=== PATIENT | female | born 1990 | race Caucasian/White ===

== ENCOUNTER → 2018-06-30 | Outpatient (CLI) | payer MEDICAID ==
--- NOTE | 2018-07-01 07:05 | US ---
EXAMINATION TYPE: US pelvis complete transvag DATE OF EXAM: 06/30/2018 COMPARISON: NONE CLINICAL HISTORY: N94.6 Dysmenorrhea. TECHNIQUE: . Transabdominal sonographic images of the pelvis were acquired. Transvaginal sonographi c images were medically necessary to better assess the following anatomy: ovaries EXAM MEASUREMENTS: Uterus: 8x 4.1 x 6.1 cm Endometrial Stripe: 0.9 cm Right Ovary: 5.2 x 2.9 x 4.0 cm Left Ovary: 2.5 x 1.5 x 2.5 cm 1. Uterus: Anteverted 2. Endometrium: wnl for secretory phase 3. Right Ovary: 3.2 x 2.6 x 4.0 cm complex cyst with debris (? hemorrhagic) and a small amount of fl uid adjacent to uterus 4. Left Ovary: wnl 5. Bilateral Adnexa: wnl 6. Posterior cul-de-sac: no free fluid IMPRESSION: 1. Complex right ovarian cysts which may reflect a hemorrhagic cyst. This can be confirmed with follo w-up study in 6 weeks. Neoplasm not excluded.
== END | disposition home or self-care (01) ==
LOC: RADUSWWP 15:34 → MERGE 15:40
PROVIDERS: ATTEND Obstetrics & Gynecology
DX: N83.201 Unspecified ovarian cyst, right side (principal)
CPT/HCPCS: 76830; 76856

== ENCOUNTER → 2018-08-11 | Outpatient (CLI) | payer MEDICAID ==
--- NOTE | 2018-08-11 16:06 | US ---
EXAMINATION TYPE: US transvaginal DATE OF EXAM: 08/11/2018 COMPARISON: US CLINICAL HISTORY: N83.0 Previous ovarian cyst. TECHNIQUE: Transvaginal (TV). Date of LMP: 07/30/2018 EXAM MEASUREMENTS: Uterus: 7.5 x 4.3 x 4.4 cm Endometrial Stripe: 1.1 cm Right Ovary: 5.0 x 5.6 x 3.6 cm Left Ovary: 2.7 x 2.5 x 2.5 cm 1. Uterus: Anteverted wnl 2. Endometrium: wnl 3. Right Ovary: 4.6 x 3.5 x 4.9 cm septated cyst with low level internal echoes. 4. Left Ovary: follicle measures 1.7 x 1.6 x 1.7 cm 5. Bilateral Adnexa: wnl 6. Posterior cul-de-sac: no free fluid IMPRESSION: Complicated right ovarian cyst is increased in size in the interval, findings may represe nt hemorrhagic cyst, follow-up recommended.
== END | disposition home or self-care (01) ==
LOC: RADUSWWP 15:24
PROVIDERS: ATTEND Obstetrics & Gynecology
DX: N83.291 Other ovarian cyst, right side (principal)
CPT/HCPCS: 76830

== ENCOUNTER → 2018-09-06 | Outpatient (CLI) | payer MEDICAID ==
--- NOTE | 2018-09-06 16:50 | US ---
EXAMINATION TYPE: US transvaginal DATE OF EXAM: 09/06/2018 COMPARISON: US 1 month prior CLINICAL HISTORY: N83.0 OVARIAN CYST. TECHNIQUE: Transvaginal (TV). Date of LMP: 08/27/18 EXAM MEASUREMENTS: Uterus: 7.5 x 4.0 x 4.5cm Endometrial Stripe: 0.5cm Right Ovary: 4.9 x 3.7 x 3.9 cm Left Ovary: 2.3 x 1.7 x 1.8 cm 1. Uterus: wnl, anteverted 2. Endometrium: wnl 3. Right Ovary: septated complex cyst with internal echoes measuring 4.3 x 3.1 x 3.5 4. Left Ovary: wnl 5. Bilateral Adnexa: wnl 6. Posterior cul-de-sac: wnl IMPRESSION: 1. Complex septated echo filled cyst within the right ovary. Follow-up is recommended. 2. Exam is compared to 08/11/2018, cyst size is slightly smaller than comparison.
== END | disposition home or self-care (01) ==
LOC: RADUSWWP 08:09
PROVIDERS: ATTEND Obstetrics & Gynecology
DX: N83.201 Unspecified ovarian cyst, right side (principal)
CPT/HCPCS: 76830

== ENCOUNTER → 2018-11-30 | Outpatient (CLI) | payer MEDICAID | END | disposition home or self-care (01) | LOC: LABWHC1 09:54 | PROVIDERS: ATTEND Obstetrics & Gynecology | DX: Z34.00 Encounter for supervision of normal first pregnancy, unspecified trimester (principal); Z3A.00 Weeks of gestation of pregnancy not specified | CPT/HCPCS: 36415; 84702; 86850; 86900; 86901 ==

== ENCOUNTER → 2018-12-02 | Outpatient (CLI) | payer MEDICAID | END | disposition home or self-care (01) | LOC: LABWHC1 09:04 | PROVIDERS: ATTEND Obstetrics & Gynecology | DX: O26.811 Pregnancy related exhaustion and fatigue, first trimester (principal); Z3A.00 Weeks of gestation of pregnancy not specified | CPT/HCPCS: 36415; 84702 ==

== ENCOUNTER → 2019-01-17 | Outpatient (CLI) | payer MEDICAID | END | disposition home or self-care (01) | LOC: LABWHC1 10:49 | PROVIDERS: ATTEND Obstetrics & Gynecology | DX: O26.819 Pregnancy related exhaustion and fatigue, unspecified trimester (principal); Z3A.00 Weeks of gestation of pregnancy not specified | CPT/HCPCS: 36415; 84702 ==

== ENCOUNTER → 2019-02-13 | Outpatient (CLI) | payer MEDICAID ==
--- NOTE | 2019-02-13 13:03 | US ---
EXAMINATION TYPE: Transabdominal DATE OF EXAM: 02/13/2019 12:48 PM COMPARISON: NONE CLINICAL HISTORY: Z36 Confirm Dates. EXAM PERFORMED: Transabdominal (TA) EXAM MEASUREMENTS: GESTATIONAL AGE / DATING Physician Established: (10 weeks/5 days) EDC: 09/06/19 Dates by LMP: (10 weeks/5 days) EDC: 09/06/19 Dates by First Scan: No previous this is first scan Dates by Current Scan for: (10 weeks/6 days) EDC: 09/05/19 MATERNAL ANATOMY Uterus: 12.2 x 7.4 x 7.6cm Right Ovary: 3.4 x 1.6 x 2.0cm Left Ovary: 2.7 x 2.1 x 2.5cm Post CDS / Adnexa: wnl Presence of free fluid: no GESTATION / SURVEY CRL: 4.0 (10 weeks/6 days) Yolk Sac (normal less than 6mm): 4mm Heart Rate: 174 bpm Rhythm: Normal IUP: Viable IUP Date of LMP: 11/30/18 Beta HcG (if available): Not available at this time IMPRESSION: Single viable intrauterine is noted.
[2019-02-13 13:35] LABS: HCT 36.4 % (34.0-46.0); HGB 11.8 gm/dL (11.4-16.0); MCH 27.3 pg (25.0-35.0); MCHC 32.5 g/dL (31.0-37.0); MCV 83.8 fL (80.0-100.0); Mean Platelet Volume 7.8; Platelet Count 236 k/uL (150-450); RBC 4.34 m/uL (3.80-5.40); RDW 15.2 % (11.5-15.5); WBC 12.6 k/uL (3.8-10.6)
[2019-02-13 13:38] LABS: Glucose 84 mg/dL (74-99)
[2019-02-14 06:16] LABS: Toxoplasma Antibody (IgG) <3.0 IU/mL (<7.2); Toxoplasma Antibody (IgM) <3.0 AU/mL (<8.0)
== END | disposition home or self-care (01) ==
LOC: RADUSWWP 12:29
PROVIDERS: ATTEND Obstetrics & Gynecology
DX: Z36.89 Encounter for other specified antenatal screening (principal)
CPT/HCPCS: 76801; 82565; 82947; 85027; 86762; 86777; 86778; 86780; 86850; 86900; 86901; 87340

== ENCOUNTER → 2019-02-13 | Outpatient (CLI) | payer MEDICAID | END | disposition home or self-care (01) | LOC: LABWHC1 12:50 | PROVIDERS: ATTEND Obstetrics & Gynecology | DX: Z53.9 Procedure and treatment not carried out, unspecified reason (principal) ==

== ENCOUNTER → 2019-05-15 | Outpatient (CLI) | payer MEDICAID ==
--- NOTE | 2019-05-15 09:12 | US ---
EXAMINATION TYPE: US OB >= 14 wk fetus DATE OF EXAM: 05/15/2019 COMPARISON: 04/12/2019 CLINICAL HISTORY: Z36 FOLLOW UP TECHNIQUE: Transabdominal (TA) GESTATIONAL AGE / DATING Physician Established: (23 weeks/5 days) EDC: 09/06/19 Dates by LMP: (23 weeks/ 5 days) EDC: 09/06/19 Dates by First Scan: (23 weeks/5 days) EDC: 09/06/19 Dates by Current Scan: (23 weeks/5 days) EDC: 09/06/19 SURVEY IUP: Single PLACENTA: Anterior PREVIA: No Previa NIC: 15.5 cm CERVICAL LENGTH (transabdominal: norm > 3.0cm): 3.2 cm BIOMETRY PRESENTATION: Vertex BPD: 5.9 cm 24 weeks / 0 days HC: 21.9 cm 23 weeks / 6 days AC: 19.3 cm 24 weeks / 0 days FL: 4.3 cm 24 weeks / 0 days ESTIMATED WEIGHT IN GRAMS: 350 grams ESTIMATED WEIGHT IN LBS/OZ: 1 lbs. 7 oz. WEIGHT PERCENTAGE BASED ON ESTABLISHED DATES: 55% HC/AC: 1.1 FL/AC: 22.3 HEART RATE: 135 bpm RHYTHM: Normal The previously seen choroid plexus cysts do not persist on today's imaging. IMPRESSION: The previously seen choroid plexus cysts have resolved. Single live intrauterine with a son ographic age of 23 weeks and 5 days and estimated date of delivery of 09/06/2019, concordant with men strual age.
== END ==
LOC: RADUSWWP 08:12
PROVIDERS: ATTEND Obstetrics & Gynecology
DX: Z36.89 Encounter for other specified antenatal screening (principal); Z3A.23 23 weeks gestation of pregnancy; Z88.0 Allergy status to penicillin
CPT/HCPCS: 76805

== ENCOUNTER → 2019-05-22 | Outpatient (CLI) | payer MEDICAID ==
[2019-05-22 10:00] LABS: HCT 32.4 % (34.0-46.0); HGB 10.4 gm/dL (11.4-16.0); MCHC 32.2 g/dL (31.0-37.0); MCV 90.2 fL (80.0-100.0); Mean Platelet Volume 8.3; Platelet Count 195 k/uL (150-450); RBC 3.59 m/uL (3.80-5.40); RDW 15.3 % (11.5-15.5); WBC 12.3 k/uL (3.8-10.6)
== END | disposition home or self-care (01) ==
LOC: LABWHC1 08:17
PROVIDERS: ATTEND Obstetrics & Gynecology
DX: Z34.82 Encounter for supervision of other normal pregnancy, second trimester (principal)
CPT/HCPCS: 36415; 82950; 85027

== ENCOUNTER → 2019-05-24 | Outpatient (CLI) | payer MEDICAID ==
[2019-05-24 12:21] LABS: Glucose 3 Hour, Gest 110 mg/dL
== END | disposition home or self-care (01) ==
LOC: LABWHC1 07:21
PROVIDERS: ATTEND Obstetrics & Gynecology
DX: O99.810 Abnormal glucose complicating pregnancy (principal)
CPT/HCPCS: 36415; 82951; 82952

== ENCOUNTER → 2019-08-03 | Outpatient (CLI) | payer MEDICAID ==
--- NOTE | 2019-08-03 10:01 | US ---
EXAMINATION TYPE: US OB >= 14 wk fetus DATE OF EXAM: 08/03/2019 COMPARISON: Multiple U/S. Latest 05/15/19 CLINICAL HISTORY: O36.63X0 large for dates TECHNIQUE: Transabdominal (TA) GESTATIONAL AGE / DATING Physician Established: (35 weeks/1 days) EDC: 09/06/19 Dates by LMP: (35 weeks/1 days) EDC: 09/06/19 Dates by First Scan: (35 weeks/2 days) EDC: 09/05/19 Dates by Current Scan: (35 weeks/2 days) EDC: 09/05/19 SURVEY IUP: Single PLACENTA: Anterior PREVIA: No Previa NIC: 12.7 cm Normal CERVICAL LENGTH (transabdominal: norm > 3.0cm): 3.6 cm BIOMETRY PRESENTATION: Vertex LIE: Longitudinal BPD: 8.8 cm 35 weeks / 3 days HC: 30.3 cm 33 weeks / 5 days AC: 32.1 cm 36 weeks / 0 days FL: 7.2 cm 36 weeks / 6 days ESTIMATED WEIGHT IN GRAMS: 2802 grams ESTIMATED WEIGHT IN LBS/OZ: 6 lbs. 3 oz. WEIGHT PERCENTAGE BASED ON ESTABLISHED DATES: 70.1% HC/AC: 0.9 Normal FL/AC: 22.4 Normal HEART RATE: 146 bpm RHYTHM: Normal MATERNAL WALL MEASUREMENT: cm from skin to anterior uterine wall (if exam limited due to body habitus ). IMPRESSION: Single viable intrauterine as noted above.
== END | disposition home or self-care (01) ==
LOC: RADUSWWP 08:47
PROVIDERS: ATTEND Obstetrics & Gynecology
DX: O36.63X0 Maternal care for excessive fetal growth, third trimester, not applicable or unspecified (principal); Z3A.00 Weeks of gestation of pregnancy not specified
CPT/HCPCS: 76805

== ENCOUNTER 2019-09-04 06:01 | Inpatient (IN) | payer MEDICAID ==
--- NOTE | 2019-09-03 16:33 | P.HPOB ---
History of Present Illness H&P Date: 09/03/19 Chief Complaint: Induction of labor This is a 28-year-old female 2 para 0 with an estimated date of confinement of 09/06/2019, estimated gestational age of 39-5/7 weeks, who presents to labor and delivery for induction of labor. She admits to good movement. She has been feeling irregular contractions and pressure. course has been essentially uncomplicated. labs: GC/chlamydia-negative Toxoplasma screen-negative Hepatitis B surface antigen-negative nonreactive Rubella-immune Syphilis antibody-nonreactive Random glucose-84 Globin-11.8 Blood type-O+ Antibody screen-negative One hour Glucola-159 Three-hour Glucola-within normal limits Group B streptococcus-negative Obstetrical history: . History of 1 miscarriage. Gynecologic history: No history of sexual transmitted diseases. Social history: She is . Review of Systems Constitutional: Denies chills, Denies fever Eyes: denies blurred vision, denies pain Ears, nose, mouth and throat: Denies headache, Denies sore throat Cardiovascular: Denies chest pain, Denies shortness of breath Respiratory: Denies cough Gastrointestinal: Reports abdominal pain (Irregular contractions) Genitourinary: Reports pelvic pain, Reports Musculoskeletal: Reports low back pain Integumentary: Denies pruritus, Denies rash Neurological: Denies numbness, Denies weakness Psychiatric: Denies anxiety, Denies depression Past Medical History Past Medical History: No Reported History History of Any Multi-Drug Resistant Organisms: None Reported Past Surgical History: No Surgical Hx Reported Past Psychological History: No Psychological Hx Reported Smoking Status: Never smoker Past Alcohol Use History: Occasional Past Drug Use History: None Reported - Past Family History Father Family Medical History: Myocardial Infarction ([place]) Medications and Allergies Home Medications Medication Instructions Recorded Confirmed Type Pnv No.95/Ferrous Fum/Folic AC 1 each PO 09/03/19 History [ Multivitamin Tablet] Allergies Allergy/AdvReac Type Severity Reaction Status Date / Time Penicillins Allergy Rash/Hives Verified 06/24/18 09:06 ibuprofen AdvReac Nausea & Verified 06/24/18 09:06 Vomiting Exam Osteopathic Statement: *. No significant issues noted on an osteopathic structural exam other than those noted in the History and Physical/Consult. HEENT: Within normal limits Heart: Regular rate and rhythm Lungs: Clear to auscultation bilaterally Abdomen: Cervix: 1-1/2 cm/60%/0 station heart tones: 140s by Doppler Extremities: Negative Homans Assessment and Plan (1) 39 weeks gestation of Status: Acute Code(s): Z3A.39 - 39 WEEKS GESTATION OF SNOMED Code(s): 19944792 Plan: Proceed with oxytocin induction of labor. Expectant management. Epidural anesthesia if desired.
[2019-09-04] MEDS ORDERED: METHYLERGONOVINE 0.2 MG/ML 1 ML AMP IM PRN (06:05)
[2019-09-04] MEDS: LACTATED RINGERS 1,000 ML IV SCH ×2 (06:05→13:33)
[2019-09-04] MEDS ORDERED: CARBOPROST TROMETHAMINE 250 MCG/ML 1 ML AMP IM PRN (06:05)
[2019-09-04] MEDS ORDERED: OXYTOCIN 10 UNIT/ML 1 ML VIAL IM PRN (06:05)
[2019-09-04] MEDS ORDERED: LIDOCAINE 0.5% (PF) 5 MG/ML (50 ML SDV) SQ PRN (06:05)
[2019-09-04] MEDS ORDERED: LIDOCAINE 1% 20 ML VIAL (10MG/ML) FOR IV START INTRADERMA PRN (06:05)
[2019-09-04] MEDS ORDERED: TERBUTALINE 1 MG/ML VIAL SQ PRN (06:05)
[2019-09-04] MEDS ORDERED: OXYTOCIN 30 UNITS/500 ML NS 30 UNIT in SALINE 1 500ML.BAG IV SCH (06:05)
[2019-09-04 06:17] LABS: Anisocytosis Slight; Basophils # (A) 0.1 k/uL (0-0.2); Basophils % (A) 1 %; Eosinophils # (A) 0.1 k/uL (0-0.7); Eosinophils % (A) 1 %; HCT 36.6 % (34.0-46.0); HGB 11.6 gm/dL (11.4-16.0); Hypochromasia Moderate; Lymphocytes # (A) 2.1 k/uL (1.0-4.8); Lymphocytes % (A) 23 %; MCHC 31.9 g/dL (31.0-37.0); MCV 81.5 fL (80.0-100.0); Mean Platelet Volume 7.5; Monocytes # (A) 0.5 k/uL (0-1.0); Monocytes % (A) 5 %; Neutrophils # (A) 6.3 k/uL (1.3-7.7); Neutrophils % (A) 68 %; Platelet Count 192 k/uL (150-450); RBC 4.48 m/uL (3.80-5.40); RDW 18.1 % (11.5-15.5); WBC 9.3 k/uL (3.8-10.6)
[2019-09-04 06:18] VITALS: BMI 28.2
[2019-09-04] MEDS ORDERED: BUTORPHANOL 1 MG/ML 1 ML VIAL IV PRN (11:24)
[2019-09-04] MEDS ORDERED: ROPIVACAINE 100 MG, fentaNYL (PF) 200 MCG in SODIUM CHLORIDE 0.9% 76 ML EPIDURAL ONE (13:52)
[2019-09-04] MEDS ORDERED: WITCH HAZEL 1 EACH MED..PAD TOPICAL PRN (17:47)
[2019-09-04] MEDS ORDERED: diphenhydrAMINE 50 MG/ML 1 ML VIAL IVP PRN ×2 (17:47)
[2019-09-04] MEDS ORDERED: diphenhydrAMINE 50 MG CAP PO PRN (17:47)
[2019-09-04] MEDS ORDERED: OXYTOCIN 20 UNITS/1000 ML NS 1,000 ML IV SCH (17:47)
[2019-09-04] MEDS ORDERED: diphenhydrAMINE 25 MG CAP PO PRN (17:47)
[2019-09-04] MEDS ORDERED: LANOLIN CREAM 5 GM TUBE TOPICAL PRN (17:47)
[2019-09-04] MEDS ORDERED: SIMETHICONE 80 MG CHEWABLE PO PRN (17:47)
[2019-09-04] MEDS ORDERED: HYDROCORTISONE 2.5% RECTAL CREAM 30 GM TUBE RECTAL PRN (17:47)
[2019-09-04] MEDS ORDERED: ZOLPIDEM 5 MG TAB PO PRN (17:47)
[2019-09-04] MEDS ORDERED: BENZOCAINE/MENTHOL SPRAY 1 GM/SPRAY AEROSOL TOPICAL PRN (17:47)
--- NOTE | 2019-09-04 18:04 | P.PROBDLV ---
Vaginal Delivery Note - . Vaginal Delivery Note: The patient progressed to complete dilation after oxytocin induction of labor and artificial rupture membranes with clear fluid noted. She did receive epidural anesthesia. Once reaching complete, she began pushing. 's head came to a crown. With one further push, the infant's head delivered across the perineum in a left occiput anterior lie followed by the left hand. The left or posterior arm was then delivered followed by the anterior shoulder and the rem ainder of the body. was placed on mother's abdomen and nose and mouth were bulb suctioned. Cord was clamped and cut and the infant was taken to warmer for evaluation. A viable female infant was noted with scores of 9 at 1 minute and 9 at 5 minutes and weight of 8 lbs. 8 oz. Inspection of the perineum revealed a left vaginal wall laceration, second-degree, that was anesthetized with 1% lidocaine and then sutured with 3-0 Vicryl suture multilayer running locked fashion. There was also a right periurethral laceration that was anesthetized with 1% lidocaine and then sutured with 2-0 Vicryl suture in a running locked fashion. Placenta delivered shortly afterwards after some gentle uterine massage. After the placenta delivered a large clot delivered. A gloved hand was placed within the uterine cavity and some clots were removed along with a small amount of placental type tissue. Uterus did firm. Bladder was also drained. Estimated blood loss was approximately 300 mL's. Mother and infant are in stable condition.
[2019-09-04 19:46] VITALS: RESP 16
[2019-09-04] MEDS: SENNOSIDES-DOCUSATE SODIUM 1 EACH TAB PO SCH (21:07)
[2019-09-05] MEDS: ACETAMINOPHEN TAB 325 MG TAB PO PRN ×2 (06:19→15:51)
[2019-09-05 07:49] LABS: Anisocytosis Slight; Basophils # (A) 0.1 k/uL (0-0.2); Basophils % (A) 0 %; Eosinophils # (A) 0.1 k/uL (0-0.7); Eosinophils % (A) 0 %; HCT 27.3 % (34.0-46.0); Hypochromasia Slight; Lymphocytes % (A) 15 %; MCH 26.5 pg (25.0-35.0); MCHC 32.6 g/dL (31.0-37.0); MCV 81.5 fL (80.0-100.0); Mean Platelet Volume 9.1; Microcytosis Slight; Monocytes # (A) 0.7 k/uL (0-1.0); Monocytes % (A) 5 %; Neutrophils # (A) 9.9 k/uL (1.3-7.7); Neutrophils % (A) 77 %; Platelet Count 162 k/uL (150-450); RBC 3.35 m/uL (3.80-5.40); RDW 18.9 % (11.5-15.5); WBC 12.9 k/uL (3.8-10.6)
[2019-09-05 08:08] VITALS: BP 134/90
[2019-09-05] MEDS: SENNOSIDES-DOCUSATE SODIUM 1 EACH TAB PO SCH (08:15)
[2019-09-05 08:16] LABS: HGB 8.9 gm/dL (11.4-16.0)
--- NOTE | 2019-09-05 09:18 | P.DS ---
Providers Date of admission: 09/04/19 06:01 Expected date of discharge: 09/05/19 Attending physician: Sylwia Acuña Primary care physician: Min Arteaga - Discharge Diagnosis(es) (1) 39 weeks gestation of Current Visit: No Status: Acute Hospital Course: This is a 28-year-old female 2 para 0 with an estimated date of confinement of 09/06/2019, estimated gestational age of 39-5/7 weeks, who presented to labor and delivery for induction of labor. She underwent oxytocin induction of labor and delivered vaginally a viable female infant with scores of 9 at 1 minute and 9 at 5 minutes and infant weight of 8 lbs. 8 oz. She did have a manual placental removal. Her course has been essentially uncomplicated. Lochia has been decreasing. Pain is been fairly well-controlled. Vital signs are stable. Abdomen is soft with fundus firm and nontender. Extremities show negative Homans. Impression is status post vaginal delivery day #1. Plan is to discharge home today. Routine instructions are given. She is advised follow-up in the office in 6 weeks for a check. She is advised to take Tylenol as needed for pain control. She will be given a prescription for a breast pump. She is advised to call the office if she has any further questions or concerns prior to her appointment time. Procedures: Oxytocin induction of labor Spontaneous vaginal delivery of a viable female infant on 09/04/2019 Patient Condition at Discharge: Stable Plan - Discharge Summary New Discharge Prescriptions: No Action Pnv No.95/Ferrous Fum/Folic AC [ Multivitamin Tablet] 1 each PO DAILY Discharge Medication List Pnv No.95/Ferrous Fum/Folic AC [ Multivitamin Tablet] 1 each PO DAILY 09/03/19 [History] Follow up Appointment(s)/Referral(s): Sylwia Acuña DO [Doctor of Osteopathic Medicine] - 6 Weeks Activity/Diet/Wound Care/Special Instructions: Instructions 1. Do not begin any exercise program for 3 weeks. 2. Do not resume sexual relations for 3 weeks or longer if uncomfortable. 3. You may take tub baths or showers at any time. 4. You may use tampons if desired after 3 weeks. 5. Keep the area of episiotomy (stitches) clean and dry. 6. If you are not nursing, wear a good fitting, supportive bra during the day and limit fluid intake for at least 1 week to prevent breast engorgement. 7. Call the office, [phone], within the next week to make appointment for your 6 week checkup if it has not already been made. 8. Report any of the following occurrences to the doctor promptly: a. Heavy, excessive bleeding b. Chills, fever c. Burning or frequency of urination d. Pain or redness and breasts if nursing e. Increasing pain or swelling in episiotomy (stitches). In addition to the above instructions, the following additional should be followed: 1. No heavy lifting or straining (exercising) until after 6 week checkup. 2. Keep abdominal incision clean and dry: You may wear a dressing if more comfortable. 3. Make office appointment for 10 days after going home or as instructed by her doctor. Discharge Disposition: HOME SELF-CARE
[2019-09-05 16:13] VITALS: PULSE 78; TEMP 98.3
== END 2019-09-05 18:00 | disposition home or self-care (01) | DRG 807 ==
LOC: 4FBP 06:01
PROVIDERS: ADMIT Obstetrics & Gynecology; ATTEND Obstetrics & Gynecology
PROC: 00HU33Z Insertion of Infusion Device into Spinal Canal, Percutaneous Approach (ICD-10-PCS; principal; 2019-09-04)
PROC: 10E0XZZ Delivery of Products of Conception, External Approach (ICD-10-PCS; principal; 2019-09-04)
PROC: 0KQM0ZZ Repair Perineum Muscle, Open Approach (ICD-10-PCS; principal; 2019-09-04)
PROC: 3E0R3BZ Introduction of Anesthetic Agent into Spinal Canal, Percutaneous Approach (ICD-10-PCS; principal; 2019-09-04)
DX: O70.1 Second degree perineal laceration during delivery (principal); Z37.0 Single live birth; O71.82 Other specified trauma to perineum and vulva; Z3A.39 39 weeks gestation of pregnancy; Z82.49 Family history of ischemic heart disease and other diseases of the circulatory system; Z88.6 Allergy status to analgesic agent; Z88.0 Allergy status to penicillin
CPT/HCPCS: 85025; 86850; 86900; 86901; 88307

== ENCOUNTER → 2021-02-04 | Outpatient (CLI) | payer MEDICAID ==
[2021-02-04 16:55] LABS: HCT 39.5 % (37.2-46.3); HGB 12.8 g/dL (12.0-15.0); MCHC 32.4 g/dL (32.0-37.0); MCV 89.4 fL (80.0-97.0); Mean Platelet Volume 11.1 fL (9.5-12.2); Platelet Count 215 X 10*3/uL (140-440); RBC 4.42 X 10*6/uL (4.10-5.20); RDW 13.4 % (11.5-14.5); WBC 9.77 X 10*3/uL (4.50-10.00)
[2021-02-04 18:25] LABS: African American GFR (CKD) 152.7 (60.0-200.0); Non-African American GFR(CKD) 131.7 (60.0-200.0)
[2021-02-04 20:36] LABS: Hepatitis B Surface Antigen Non-Reactive (Non-Reactive)
[2021-02-04 20:40] LABS: HIV 2 AB Non-Reactive (Non-Reactive); HIV AB P24 Non-Reactive (Non-Reactive); HIV P24 AG Non-Reactive (Non-Reactive)
== END | disposition home or self-care (01) ==
LOC: LABWHC1 09:56
PROVIDERS: ATTEND Obstetrics & Gynecology
DX: Z34.81 Encounter for supervision of other normal pregnancy, first trimester (principal); Z3A.00 Weeks of gestation of pregnancy not specified
CPT/HCPCS: 36415; 82565; 82947; 85027; 86762; 86780; 86850; 86900; 86901; 87340; 87390

== ENCOUNTER → 2021-02-18 | Outpatient (CLI) | payer MEDICAID ==
--- NOTE | 2021-02-18 09:50 | US ---
EXAMINATION TYPE: Transabdominal DATE OF EXAM: 02/18/2021 9:27 AM COMPARISON: NONE CLINICAL HISTORY: Z36 confirm dates. Dates EXAM PERFORMED: Transabdominal (TA) EXAM MEASUREMENTS: GESTATIONAL AGE / DATING Physician Established: Not yet established Dates by LMP: (10 weeks/5 days) EDC: 09/11/2021 Dates by First Scan: No previous this is first scan Dates by Current Scan for: (11 weeks/0 days) EDC: 09/09/2021 MATERNAL ANATOMY Uterus: 13.8 x 9.4 x 6.6 cm Right Ovary: 4.8 x 2.5 x 1.7 cm Left Ovary: 3.1 x 1.7 x 1.6 cm Post CDS / Adnexa: no free fluid Presence of free fluid: no Presence of corpus luteal cyst: no Presence of subchorionic bleed: no GESTATION / SURVEY CRL: 4.1 (11 weeks/0 days) MSD: seen, not measured Yolk Sac (normal less than 6mm): 4.4 mm Heart Rate: 174 bpm Rhythm: Normal IUP: Viable IUP Nuchal Translucency 10-14wks (normal less than 3mm): 1.9 mm Age Appropriate Anatomy Limbs: Visualized Date of LMP: 12/05/2020 Beta HcG (if available): Not available at this time GS, YS and CRL visualized. Single live IUP measuring 11 weeks 0 days. IMPRESSION: Viable 11 weeks 0 days with a heart rate of 174 bpm.
== END | disposition home or self-care (01) ==
LOC: RADUSWWP 09:06
PROVIDERS: ATTEND Obstetrics & Gynecology
DX: Z36.89 Encounter for other specified antenatal screening (principal); Z3A.11 11 weeks gestation of pregnancy
CPT/HCPCS: 76801; 76813

== ENCOUNTER → 2021-04-18 | Outpatient (CLI) | payer MEDICAID | END | disposition home or self-care (01) ==

== ENCOUNTER → 2021-04-25 | Outpatient (CLI) | payer MEDICAID ==
--- NOTE | 2021-04-25 13:51 | US ---
EXAMINATION TYPE: US OB Call Back DATE OF EXAM: 04/25/2021 COMPARISON: 04/18/2021 CLINICAL HISTORY: OB CALL BACK. GESTATIONAL AGE / DATING Dates by Initial Survey Scan: (20 weeks/1 days) EDC: 09/11/2021 HEART RATE: 161 bpm RHYTHM: ANATOMY SEEN (second anatomic survey look): Longitudinal Spine: Transverse Spine: IMPRESSION: Single live intrauterine with longitudinal and transverse spine visualized.
== END | disposition home or self-care (01) ==
LOC: RADUSWWP 12:45
PROVIDERS: ATTEND Obstetrics & Gynecology
DX: Z53.9 Procedure and treatment not carried out, unspecified reason (principal)

== ENCOUNTER → 2021-05-26 | Outpatient (CLI) | payer MEDICAID ==
[2021-05-26 11:48] LABS: HCT 34.1 % (37.2-46.3); HGB 11.2 g/dL (12.0-15.0); MCH 30.1 pg (27.0-32.0); MCHC 32.8 g/dL (32.0-37.0); MCV 91.7 fL (80.0-97.0); Mean Platelet Volume 11.8 fL (9.5-12.2); Platelet Count 174 X 10*3/uL (140-440); RBC 3.72 X 10*6/uL (4.10-5.20); WBC 10.52 X 10*3/uL (4.50-10.00)
== END | disposition home or self-care (01) ==
LOC: LABWHC1 07:38
PROVIDERS: ATTEND Obstetrics & Gynecology
DX: Z34.82 Encounter for supervision of other normal pregnancy, second trimester (principal)
CPT/HCPCS: 36415; 82950; 85027

== ENCOUNTER → 2021-06-04 | Outpatient (CLI) | payer MEDICAID ==
[2021-06-04 11:57] LABS: Glucose 3 Hour, Gest 96 mg/dL
== END | disposition home or self-care (01) ==
LOC: LABWHC1 07:32
PROVIDERS: ATTEND Obstetrics & Gynecology
DX: O99.810 Abnormal glucose complicating pregnancy (principal); Z3A.00 Weeks of gestation of pregnancy not specified
CPT/HCPCS: 36415; 82951; 82952

== ENCOUNTER → 2021-08-06 | Outpatient (CLI) | payer MEDICAID ==
--- NOTE | 2021-08-06 14:40 | US ---
EXAMINATION TYPE: US OB >= 14 wk fetus DATE OF EXAM: 08/06/2021 COMPARISON: None CLINICAL HISTORY: O36.X0 large for dates, growth TECHNIQUE: OBTA GESTATIONAL AGE / DATING Physician Established: (34 weeks/6 days) EDC: 09-11-21 Dates by LMP: LMP unknown Dates by First Scan: (35 weeks/3 days) EDC: 09-09-2021 Dates by Current Scan: (35 weeks/2 days) EDC: 09-08-2021 SURVEY IUP: Single PLACENTA: Fundal PREVIA: No Previa NIC: 15.6 cm Normal CERVICAL LENGTH (transabdominal: norm > 3.0cm): due to head shadowing and non distended bladder, unab le to visualize BIOMETRY PRESENTATION: Vertex LIE: Longitudinal BPD: 8.9 cm 36 weeks / 1 days HC: 30.8 cm 34 weeks / 3 days AC: 32.5 cm 36 weeks / 3 days FL: 7.0 cm 36 weeks / 0 days ESTIMATED WEIGHT IN GRAMS: 2845 grams ESTIMATED WEIGHT IN LBS/OZ: 6 lbs. 4 oz. WEIGHT PERCENTAGE BASED ON ESTABLISHED DATES: 80% HC/AC: 1.0 Normal FL/AC: 21.6 Normal HEART RATE: 159 bpm RHYTHM: Normal Cephalic index of 86.91 is slightly above normal. Normal 70.00-86.00 Femur length to head circumference is slightly elevated at 22.79, normal 20.10-22.24. IMPRESSION: 1. Increased head size with some elevation of the ratios discussed above. 2. Estimated age based on current measurements is 35 weeks 2 days. Cardiac activity measures 15 9 bpm
== END | disposition home or self-care (01) ==
LOC: RADUSWWP 09:42
PROVIDERS: ATTEND Obstetrics & Gynecology
DX: O36.63X0 Maternal care for excessive fetal growth, third trimester, not applicable or unspecified (principal); Z3A.35 35 weeks gestation of pregnancy
CPT/HCPCS: 76805

== ENCOUNTER 2021-09-11 05:58 | Inpatient (IN) | payer MEDICAID ==
--- NOTE | 2021-09-11 05:49 | P.HPOB ---
History of Present Illness H&P Date: 09/11/21 Chief Complaint: Induction of labor This is a 30 y.o. female, 3, para 1, with an estimated date of confinement of 09/11/2021, estimated gestational age of 40 weeks, who presents for induction of labor. She has been feeling irregular contractions and pressure. course has been uncomplicated. labs: GC/Chlamydia-neg Blood type-O+ Antibody screen-neg Random glucose-80 Hemoglobin-12.8 Hepatitis B surface antigen-NR Rubella-immune Syphilis antibody-NR HIV-NR 1 hr. GTT-154; 3 hr. GTT-wnl GBS-neg OB Hx: History of 1 vaginal delivery at term. 1 miscarriage. Rougher For Cement Hx: No hx STDs Social Hx: . Unemployed. Review of Systems Constitutional: Denies chills, Denies fever Eyes: denies blurred vision, denies pain Ears, nose, mouth and throat: Denies headache, Denies sore throat Cardiovascular: Denies chest pain, Denies shortness of breath Respiratory: Denies cough Gastrointestinal: Reports abdominal pain (irregular contractions) Genitourinary: Reports pelvic pain, Reports Musculoskeletal: Reports low back pain Integumentary: Denies pruritus, Denies rash Neurological: Denies numbness, Denies weakness Psychiatric: Denies anxiety, Denies depression Past Medical History Past Medical History: No Reported History History of Any Multi-Drug Resistant Organisms: None Reported Past Surgical History: No Surgical Hx Reported Additional Past Surgical History / Comment(s): wisdom teeth Past Anesthesia/Blood Transfusion Reactions: No Reported Reaction Past Psychological History: No Psychological Hx Reported Past Alcohol Use History: Occasional Additional Past Alcohol Use History / Comment(s): not during Past Drug Use History: None Reported - Past Family History Father Family Medical History: Coronary Artery Disease (CAD), Hypertension, Myocardial Infarction ([place]) Additional Family Medical History / Comment(s): r/t brain aneurysm Medications and Allergies Home Medications Medication Instructions Recorded Confirmed Type Pnv No.95/Ferrous Fum/Folic AC 1 each PO DAILY 09/03/19 09/04/19 History [ Multivitamin Tablet] Allergies Allergy/AdvReac Type Severity Reaction Status Date / Time Penicillins Allergy Rash/Hives Verified 09/04/19 06:05 ibuprofen AdvReac Nausea & Verified 09/04/19 06:05 Vomiting Exam Osteopathic Statement: *. No significant issues noted on an osteopathic structural exam other than those noted in the History and Physical/Consult. HEENT: within normal limits Heart: regular rate and rhythm Lungs: clear to auscultation bilaterally Abdomen: Cervix: 3.5-4 cm/60%/-2 heart tones: 140's by doppler Extremities: neg. Elvin's Assessment and Plan (1) 40 weeks gestation of Status: Acute Code(s): Z3A.40 - 40 WEEKS GESTATION OF SNOMED Code(s): 12036535 Plan: Admission for oxytocin induction of labor. Expectant management. Epidural anesthesia if desired.
[2021-09-11] MEDS ORDERED: TERBUTALINE 1 MG/ML VIAL SQ PRN (06:10)
[2021-09-11] MEDS ORDERED: METHYLERGONOVINE 0.2 MG/ML 1 ML AMP IM PRN (06:10)
[2021-09-11] MEDS ORDERED: OXYTOCIN 10 UNIT/ML 1 ML VIAL IM PRN (06:10)
[2021-09-11] MEDS ORDERED: CARBOPROST TROMETHAMINE 250 MCG/ML 1 ML AMP IM PRN (06:10)
[2021-09-11] MEDS ORDERED: LIDOCAINE 0.5% (PF) 5 MG/ML (50 ML SDV) SQ PRN (06:10)
[2021-09-11] MEDS ORDERED: LIDOCAINE 1% (10MG/ML) FOR IV START INTRADERMA PRN (06:10)
[2021-09-11 06:21] LABS: Anisocytosis Slight; Basophils # (A) 0.1 k/uL (0-0.2); Basophils % (A) 0 %; Eosinophils # (A) 0.2 k/uL (0-0.7); Eosinophils % (A) 2 %; HCT 31.3 % (34.0-46.0); HGB 10.4 gm/dL (11.4-16.0); Hypochromasia Slight; Lymphocytes # (A) 2.7 k/uL (1.0-4.8); Lymphocytes % (A) 24 %; MCH 25.6 pg (25.0-35.0); MCHC 33.4 g/dL (31.0-37.0); MCV 76.8 fL (80.0-100.0); Mean Platelet Volume 10.4; Microcytosis Slight; Monocytes # (A) 0.6 k/uL (0-1.0); Monocytes % (A) 5 %; Neutrophils # (A) 7.5 k/uL (1.3-7.7); Neutrophils % (A) 67 %; Platelet Count 190 k/uL (150-450); Poikilocytosis Slight; RBC 4.07 m/uL (3.80-5.40); RDW 16.1 % (11.5-15.5); WBC 11.3 k/uL (3.8-10.6)
[2021-09-11] MEDS: LACTATED RINGERS 1,000 ML IV SCH ×2 (06:28→11:00)
[2021-09-11] MEDS: OXYTOCIN 30 UNITS/500 ML NS 30 UNIT in SALINE 1 500ML.BAG IV SCH ×3 (06:31→12:39)
[2021-09-11] MEDS ORDERED: BUTORPHANOL 1 MG/ML 1 ML VIAL IV PRN (09:44)
[2021-09-11] MEDS ORDERED: ROPIVACAINE 100 MG, fentaNYL (PF). 200 MCG in SODIUM CHLORIDE 0.9% 76 ML EPIDURAL ONE (11:34)
[2021-09-11] MEDS ORDERED: HYDROCORTISONE 2.5% RECTAL CREAM 30 GM TUBE RECTAL PRN (13:52)
[2021-09-11] MEDS ORDERED: ZOLPIDEM 5 MG TAB PO PRN (13:52)
[2021-09-11] MEDS ORDERED: diphenhydrAMINE 50 MG CAP PO PRN (13:52)
[2021-09-11] MEDS ORDERED: BENZOCAINE/MENTHOL SPRAY 1 GM/SPRAY AEROSOL TOPICAL PRN (13:52)
[2021-09-11] MEDS ORDERED: diphenhydrAMINE 25 MG CAP PO PRN (13:52)
[2021-09-11] MEDS ORDERED: SIMETHICONE 80 MG CHEWABLE PO PRN (13:52)
[2021-09-11] MEDS ORDERED: diphenhydrAMINE 50 MG/ML 1 ML VIAL IVP PRN ×2 (13:52)
[2021-09-11] MEDS ORDERED: OXYTOCIN 30 UNITS/500 ML NS 30 UNIT in SALINE 1 500ML.BAG IV SCH (13:52)
[2021-09-11] MEDS ORDERED: LANOLIN CREAM 5 GM TUBE TOPICAL PRN (13:52)
[2021-09-11] MEDS: ACETAMINOPHEN TAB 325 MG TAB PO PRN ×2 (14:32→22:50)
--- NOTE | 2021-09-11 17:39 | P.PROBDLV ---
Vaginal Delivery Note - . Vaginal Delivery Note: The patient progressed to complete dilation after oxytocin induction of labor and artificial rupture membranes with clear fluid noted. She did receive epidural anesthesia. Once reaching complete, she began pushing. She only pushed for approximately 1-2 pushes and 's head rather precipitously delivered across the perineum. At this time nursing staff was present. The head of the bed was laid back and her legs were flexed into a Otto position. Within 30 seconds the anterior shoulder did release with maternal pushing efforts. The infant was then placed on the bed and cord was clamped and cut. Infant was taken to warmer for evaluation and a viable female is noted with scores of 8 at 1 minute and 9 at 5 minutes and weight of 9 lbs. 3 oz. Next the placenta delivered shortly thereafter, intact, with a three-vessel cord. Uterus contracted fairly well after oxytocin was given and uterine massage was carried out. Also her bladder was drained with a catheter. A gloved hand was used to express several blood clots from the intrauterine cavity and the uterus did clamp down fairly well after this. Inspection of the perineum revealed a small second-degree perineal laceration. This area was anesthetized with 1% lidocaine and then sutured with 30 and 2-0 Vicryl suture in the usual multilayer fashion. Estimated blood loss is approximately 300 mL's. Mother and infant are in stable condition.
[2021-09-11] MEDS: SENNOSIDES-DOCUSATE SODIUM 1 EACH TAB PO SCH (21:25)
[2021-09-12] MEDS: ACETAMINOPHEN TAB 325 MG TAB PO PRN (06:09)
[2021-09-12 07:56] LABS: Anisocytosis Slight; Basophils % (A) 0 %; Eosinophils # (A) 0.1 k/uL (0-0.7); Eosinophils % (A) 1 %; Hypochromasia Slight; Lymphocytes # (A) 2.1 k/uL (1.0-4.8); Lymphocytes % (A) 19 %; MCH 25.6 pg (25.0-35.0); MCHC 32.8 g/dL (31.0-37.0); Mean Platelet Volume 10.3; Microcytosis Slight; Monocytes # (A) 0.5 k/uL (0-1.0); Monocytes % (A) 5 %; Neutrophils # (A) 8.4 k/uL (1.3-7.7); Neutrophils % (A) 75 %; Platelet Count 153 k/uL (150-450); Poikilocytosis Slight; RBC 3.21 m/uL (3.80-5.40); RDW 16.5 % (11.5-15.5); WBC 11.3 k/uL (3.8-10.6)
[2021-09-12 08:14] LABS: HGB 8.2 gm/dL (11.4-16.0)
[2021-09-12] MEDS: SENNOSIDES-DOCUSATE SODIUM 1 EACH TAB PO SCH (08:25)
[2021-09-12 08:33] VITALS: BP 112/71; PULSE 79; RESP 14; TEMP 98.2
[2021-09-12] MEDS ORDERED: PRENATAL VIT-IRON-FOLIC ACID 1 EACH CAP PO SCH (09:00)
--- NOTE | 2021-09-12 10:04 | P.DS ---
Providers Date of admission: 09/11/21 05:58 Expected date of discharge: 09/12/21 Attending physician: Sylwia Acuña Primary care physician: Min Arteaga - Discharge Diagnosis(es) (1) 40 weeks gestation of Current Visit: No Status: Acute Hospital Course: This is a 30-year-old female 3 para 1 at 40-0/7 weeks who presented for induction of labor. She delivered vaginally a viable female with scores of 8 at 1 minute and 9 at 5 minutes and weight of 9 lbs. 3 oz. on 09/11/2021. Her course has been essentially uncomplicated. She states her bleeding has been minimal. Her pain is well-controlled. She is breast-feeding well. Vital signs are stable. Abdomen is soft with fundus firm and nontender. Extremities show negative Homans. Impression is status post vaginal delivery day #1. Plan is to discharge home today. Routine instructions are given. She is advised follow-up in the office in 6 weeks for a check. She is advised to continue taking her vitamins and to take extra iron due to her chronic anemia. She is advised to call the office if she has any further questions or concerns prior to her appointment time. Procedures: Oxytocin induction of labor Spontaneous vaginal delivery of a viable female infant on 09/11/2021 Patient Condition at Discharge: Stable Plan - Discharge Summary New Discharge Prescriptions: No Action Pnv No.95/Ferrous Fum/Folic AC [ Multivitamin Tablet] 1 each PO DAILY Discharge Medication List Pnv No.95/Ferrous Fum/Folic AC [ Multivitamin Tablet] 1 each PO DAILY 09/03/19 [History] Follow up Appointment(s)/Referral(s): Sylwia Acuña DO [Doctor of Osteopathic Medicine] - 10/21/21 11:30 am Activity/Diet/Wound Care/Special Instructions: Instructions 1. Do not begin any exercise program for 3 weeks. 2. Do not resume sexual relations for 3 weeks or longer if uncomfortable. 3. You may take tub baths or showers at any time. 4. You may use tampons if desired after 3 weeks. 5. Keep the area of episiotomy (stitches) clean and dry. 6. If you are not nursing, wear a good fitting, supportive bra during the day and limit fluid intake for at least 1 week to prevent breast engorgement. 7. Call the office, [phone], within the next week to make appointment for your 6 week checkup if it has not already been made. 8. Report any of the following occurrences to the doctor promptly: a. Heavy, excessive bleeding b. Chills, fever c. Burning or frequency of urination d. Pain or redness and breasts if nursing e. Increasing pain or swelling in episiotomy (stitches). In addition to the above instructions, the following additional should be followed: 1. No heavy lifting or straining (exercising) until after 6 week checkup. 2. Keep abdominal incision clean and dry: You may wear a dressing if more comfortable. 3. Make office appointment for 10 days after going home or as instructed by her doctor. Discharge Disposition: HOME SELF-CARE
== END 2021-09-12 13:01 | disposition home or self-care (01) | DRG 807 ==
LOC: 4FBP 05:58
PROVIDERS: ADMIT Obstetrics & Gynecology; ATTEND Obstetrics & Gynecology
PROC: 10E0XZZ Delivery of Products of Conception, External Approach (ICD-10-PCS; principal; 2021-09-11)
PROC: 0KQM0ZZ Repair Perineum Muscle, Open Approach (ICD-10-PCS; 2021-09-11)
PROC: 10907ZC Drainage of Amniotic Fluid, Therapeutic from Products of Conception, Via Natural or Artificial Opening (ICD-10-PCS; 2021-09-11)
PROC: 3E033VJ Introduction of Other Hormone into Peripheral Vein, Percutaneous Approach (ICD-10-PCS; 2021-09-11)
DX: O62.3 Precipitate labor (principal); Z37.0 Single live birth; D64.9 Anemia, unspecified; O70.1 Second degree perineal laceration during delivery; O99.02 Anemia complicating childbirth; Z3A.40 40 weeks gestation of pregnancy; Z88.6 Allergy status to analgesic agent; Z88.0 Allergy status to penicillin; Z87.59 Personal history of other complications of pregnancy, childbirth and the puerperium
CPT/HCPCS: 85025; 86850; 86900; 86901

== ENCOUNTER → 2023-01-19 | Outpatient (CLI) | payer MEDICAID ==
[2023-01-19 11:21] LABS: Basophils # (A) 0.04 X 10*3/uL (0.00-0.10); Basophils % (A) 0.6 %; Eosinophils # (A) 0.18 X 10*3/uL (0.04-0.35); Eosinophils % (A) 2.7 %; HCT 40.6 % (37.2-46.3); HGB 12.9 g/dL (12.0-15.0); Immature Grans, Automated 0.5 %; Lymphocytes # (A) 2.33 X 10*3/uL (0.90-5.00); Lymphocytes % (A) 35.5 %; MCHC 31.8 g/dL (32.0-37.0); MCV 88.1 fL (80.0-97.0); Mean Platelet Volume 10.6 fL (9.5-12.2); Monocytes # (A) 0.51 X 10*3/uL (0.20-1.00); Monocytes % (A) 7.8 %; NRBC Per 100 WBC 0 /100 WBCS (0.0-0.0); Neutrophils # (A) 3.47 X 10*3/uL (1.80-7.70); Neutrophils % (A) 52.9 %; Platelet Count 206 X 10*3/uL (140-440); RBC 4.61 X 10*6/uL (4.10-5.20); RDW 13.2 % (11.5-14.5); WBC 6.56 X 10*3/uL (4.50-10.00)
[2023-01-19 11:42] LABS: ALT 13 U/L (8-44); AST 18 U/L (13-35); African American GFR (CKD) 137.5 (60.0-200.0); Albumin 4.5 g/dL (3.8-4.9); Albumin/Globulin Ratio 1.55 (1.60-3.17); Alkaline Phosphatase 78 U/L (41-126); BUN/Creat Ratio 19.73 Ratio (12.00-20.00); Calcium 9.1 mg/dL (8.7-10.3); Carbon Dioxide 23.6 mmol/L (20.0-27.5); Chloride 103 mmol/L (96-109); Chol/HDL Ratio 2.78 Ratio; Globulin 2.9 g/dL (1.6-3.3); Glucose 81 mg/dL (70-110); LDL Cholesterol,Calculated 99.9 mg/dL (0.0-131.0); Non-African American GFR(CKD) 118.6 (60.0-200.0); Potassium 4.2 mmol/L (3.5-5.5); Sodium 134 mmol/L (135-145); Total Protein 7.4 g/dL (6.2-8.2); VLDL Calculation 9.04 mg/dL (5.00-40.00)
== END | disposition home or self-care (01) ==
LOC: LABWHC1 07:24
PROVIDERS: ATTEND Family Medicine
DX: Z00.00 Encounter for general adult medical examination without abnormal findings (principal)
CPT/HCPCS: 36415; 80053; 80061; 83036; 84439; 84443; 85025

== ENCOUNTER → 2023-12-15 | Outpatient (CLI) | payer MEDICAID ==
[2023-12-15 17:29] LABS: Basophils # (A) 0.03 X 10*3/uL (0.00-0.10); Basophils % (A) 0.6 %; Eosinophils # (A) 0.11 X 10*3/uL (0.04-0.35); Eosinophils % (A) 2.1 %; HCT 39.9 % (37.2-46.3); HGB 13.1 g/dL (12.0-15.0); Lymphocytes % (A) 36.5 %; MCH 28.3 pg (27.0-32.0); MCHC 32.8 g/dL (32.0-37.0); MCV 86.2 FL (80.0-97.0); Mean Platelet Volume 10.9 FL (9.5-12.2); Monocytes # (A) 0.32 X 10*3/uL (0.20-1.00); Monocytes % (A) 6.1 %; NRBC Per 100 WBC 0 X 10*3/uL (0.00-0.01); Neutrophils # (A) 2.84 X 10*3/uL (1.80-7.70); Neutrophils % (A) 54.5 %; Platelet Count 238 X 10*3/uL (140-440); RBC 4.63 X 10*6/uL (4.10-5.20); RDW 13.3 % (11.5-14.5); WBC 5.21 X 10*3/uL (4.50-10.00)
[2023-12-15 18:13] LABS: ALT 12 U/L (8-44); AST 17 U/L (13-35); Albumin 4.5 g/dL (3.8-4.9); Albumin/Globulin Ratio 1.55 Ratio (1.60-3.17); Alkaline Phosphatase 57 U/L (41-126); BUN/Creat Ratio 13.57 Ratio (12.00-20.00); Blood Urea Nitrogen 9.5 mg/dL (9.0-27.0); Calcium 9.3 mg/dL (8.7-10.3); Carbon Dioxide 23.5 mmol/L (21.6-31.8); Chloride 104 mmol/L (96-109); Chol/HDL Ratio 3.13 Ratio; Globulin 2.9 g/dL (1.6-3.3); Glucose 95 mg/dL (70-110); LDL Cholesterol,Calculated 102.6 mg/dL (0.0-131.0); Potassium 3.9 mmol/L (3.5-5.5); Sodium 139 mmol/L (135-145); T4, Free (Free Thyroxine) 1.45 ng/dL (0.80-1.80); Total Bilirubin 0.4 mg/dL (0.3-1.2); Total Protein 7.4 g/dL (6.2-8.2); VLDL Calculation 15.24 mg/dL (5.00-40.00)
== END | disposition home or self-care (01) ==
LOC: LABMAIN 08:07
PROVIDERS: ATTEND Family Medicine
DX: Z00.00 Encounter for general adult medical examination without abnormal findings (principal); R73.9 Hyperglycemia, unspecified
CPT/HCPCS: 80053; 80061; 83036; 84439; 84443; 85025

== ENCOUNTER → 2025-02-02 | Outpatient (CLI) | payer MEDICAID ==
[2025-02-02 15:19] LABS: Basophils # (A) 0.05 X 10*3/uL (0.00-0.10); Basophils % (A) 0.8 %; Eosinophils # (A) 0.28 X 10*3/uL (0.04-0.35); Eosinophils % (A) 4.7 %; HCT 38.6 % (37.2-46.3); HGB 12.8 g/dL (12.0-15.0); Lymphocytes # (A) 2.21 X 10*3/uL (0.90-5.00); Lymphocytes % (A) 36.8 %; MCHC 33.2 g/dL (32.0-37.0); MCV 84.5 FL (80.0-97.0); Mean Platelet Volume 10.6 FL (9.5-12.2); Monocytes # (A) 0.48 X 10*3/uL (0.20-1.00); NRBC Per 100 WBC 0 X 10*3/uL (0.00-0.01); Neutrophils # (A) 2.97 X 10*3/uL (1.80-7.70); Neutrophils % (A) 49.4 %; Platelet Count 266 X 10*3/uL (140-440); RBC 4.57 X 10*6/uL (4.10-5.20); RDW 13.9 % (11.5-14.5); WBC 6.01 X 10*3/uL (4.50-10.00)
[2025-02-02 17:28] LABS: % Iron Saturation 14.73 (12.00-45.00); ALT 18 U/L (8-44); AST 21 U/L (13-35); Albumin 4.4 g/dL (3.8-4.9); Albumin/Globulin Ratio 1.63 Ratio (1.60-3.17); Alkaline Phosphatase 64 U/L (41-126); BUN/Creat Ratio 22.14 Ratio (12.00-20.00); Blood Urea Nitrogen 15.5 mg/dL (9.0-27.0); Calcium 9.3 mg/dL (8.7-10.3); Carbon Dioxide 23.9 mmol/L (21.6-31.8); Chloride 104 mmol/L (96-109); Chol/HDL Ratio 3.19 Ratio; Ferritin 8.7 ng/mL (10.0-291.0); Globulin 2.7 g/dL (1.6-3.3); Glucose 95 mg/dL (70-110); Iron 67 UG/DL (50-170); LDL Cholesterol,Calculated 115.5 mg/dL (0.0-131.0); Potassium 4.5 mmol/L (3.5-5.5); Sodium 138 mmol/L (135-145); Total Bilirubin 0.3 mg/dL (0.3-1.2); Total Iron Binding Capacity 455 UG/DL (228-460); Total Protein 7.1 g/dL (6.2-8.2)
== END | disposition home or self-care (01) ==
LOC: LABMAIN 07:39
DX: Z13.220 Encounter for screening for lipoid disorders (principal); D50.9 Iron deficiency anemia, unspecified; E55.9 Vitamin D deficiency, unspecified
CPT/HCPCS: 80053; 80061; 82306; 82728; 83036; 83540; 83550; 84443; 85025